=== PATIENT | female | born 1965 | race Caucasian/White ===

== ENCOUNTER 2017-02-13 10:22 | Inpatient (IN) | payer MEDICAID ==
[~2017-02-13 10:22] MED LIST: SCOPOLAMINE PATCH TOP ONE
[2017-02-13] MEDS ORDERED: ceFAZolin 2 GM/50 ML 50 ML IV ONE (10:26)
[2017-02-13] MEDS ORDERED: LACTATED RINGERS 1,000 ML IV ONE ×4 (10:30→19:14)
[2017-02-13] MEDS ORDERED: LIDOCAINE 1% 50 ML MDV ONE (11:06)
[2017-02-13] MEDS ORDERED: LIDOCAINE 1%-EPI 1:100000 20 ML MDV SUBQ ONE ×2 (14:11→19:14)
[2017-02-13] MEDS ORDERED: BUPIVACAINE 0.5% PF 30 ML VIAL SUBQ ONE ×2 (14:11→19:14)
[2017-02-13] MEDS ORDERED: METOCLOPRAMIDE 10 MG/2 ML VIAL IVP ONE (14:18)
[2017-02-13] MEDS ORDERED: GLYCOPYRROLATE 1 MG/5 ML VIAL IVP ONE (14:18)
[2017-02-13] MEDS ORDERED: MIDAZOLAM 2 MG/2 ML VIAL IVP ONE (14:18)
[2017-02-13] MEDS ORDERED: HYDROmorphone 1 MG/ML SYRINGE IVP ONE (14:18)
[2017-02-13] MEDS ORDERED: NEOSTIGMINE 1 MG/1 ML 10 ML MDV IVP ONE (14:18)
[2017-02-13] MEDS ORDERED: SUCCINYLCHOLINE 200 MG/10 ML VIAL IVP ONE (14:18)
[2017-02-13] MEDS ORDERED: KETOROLAC 30 MG/ML VIAL IVP ONE (14:18)
[2017-02-13] MEDS ORDERED: LIDOCAINE-MPF 2% 5 ML VIAL IM ONE (14:18)
[2017-02-13] MEDS ORDERED: DEXAMETHASONE 4 MG/ML VIAL IVP ONE (14:18)
[2017-02-13] MEDS ORDERED: PROPOFOL 200 MG/20 ML VIAL IVP ONE (14:18)
[2017-02-13] MEDS ORDERED: ACETAMINOPHEN 1,000 MG/100 ML VIAL IV ONE (14:18)
[2017-02-13] MEDS ORDERED: ONDANSETRON 4 MG/2 ML VIAL IVP ONE (14:18)
[2017-02-13] MEDS ORDERED: ROCURONIUM 50 MG/5 ML VIAL IVP ONE (14:18)
[2017-02-13] MEDS: HYDROmorphone 1 MG/ML SYRINGE ONE ×4 (19:10→19:38)
[2017-02-13] MEDS ORDERED: PROMETHAZINE 25 MG SUPP PR PRN (19:11)
[2017-02-13] MEDS ORDERED: PHENOL THROAT SPRAY 177 ML MM PRN (19:11)
[2017-02-13] MEDS ORDERED: PROCHLORPERAZINE 10 MG/2 ML VIAL IVP PRN (19:11)
[2017-02-13] MEDS ORDERED: ONDANSETRON 4 MG/2 ML VIAL IVP PRN (19:11)
[2017-02-13] MEDS ORDERED: HYDROmorphone 1 MG/ML SYRINGE IVP PRN (19:11)
[2017-02-13] MEDS ORDERED: ACETAMINOPHEN 1,000 MG/100 ML 100 ML IV PRN (19:11)
[2017-02-13] MEDS ORDERED: ACETAMINOPHEN 1,000 MG/100 ML 100 ML IV ONE (19:11)
[2017-02-13] MEDS: fentaNYL 100 MCG/2 ML VIAL ONE ×2 (19:52→20:19)
[2017-02-13] MEDS: HYDROmorphone PCA 10 MG IV PRN (20:27)
[2017-02-13] MEDS: D5NS W/20 MEQ KCL 1,000 ML IV SCH (20:49)
[2017-02-13] MEDS: SODIUM CHLORIDE FLUSH 0.9% 10 ML SYRINGE IVP SCH (21:48)
[2017-02-13] MEDS: diphenhydrAMINE INJ 50 MG/ML VIAL IVP PRN (22:16)
[2017-02-14] MEDS: PANTOPRAZOLE 40 MG VIAL IVP SCH (06:33)
[2017-02-14] MEDS: D5NS W/20 MEQ KCL 1,000 ML IV SCH ×2 (06:34→16:18)
[2017-02-14] MEDS: SODIUM CHLORIDE FLUSH 0.9% 10 ML SYRINGE IVP SCH ×3 (06:35→19:48)
[2017-02-14] MEDS: ENOXAPARIN 40 MG/0.4 ML SYRINGE SUBQ SCH (09:20)
[2017-02-14] MEDS: diphenhydrAMINE INJ 50 MG/ML VIAL IVP PRN ×2 (11:52→18:28)
[2017-02-14] MEDS: LORazepam 2 MG/ML SYRINGE IVP PRN ×2 (14:52→21:01)
[2017-02-14] MEDS ORDERED: BENZOCAINE/MENTHOL LOZENGE MM ONE (20:56)
[2017-02-15] MEDS: diphenhydrAMINE INJ 50 MG/ML VIAL IVP PRN ×3 (01:00→16:44)
[2017-02-15] MEDS: SODIUM CHLORIDE FLUSH 0.9% 10 ML SYRINGE IVP PRN ×2 (01:02→16:45)
[2017-02-15] MEDS: HYDROmorphone PCA 10 MG IV PRN (01:37)
[2017-02-15] MEDS: D5NS W/20 MEQ KCL 1,000 ML IV SCH (01:41)
[2017-02-15] MEDS: PANTOPRAZOLE 40 MG VIAL IVP SCH (06:47)
[2017-02-15] MEDS: SODIUM CHLORIDE FLUSH 0.9% 10 ML SYRINGE IVP SCH ×3 (06:47→16:45)
[2017-02-15] MEDS ORDERED: oxyCOD/ACETAMIN 5 MG/325 MG TABLET PO PRN (09:45)
[2017-02-15] MEDS: ENOXAPARIN 40 MG/0.4 ML SYRINGE SUBQ SCH (10:13)
[2017-02-15] MEDS: oxyCOD/ACETAMIN 5 MG/325 MG TABLET PO PRN ×3 (12:16→20:33)
[2017-02-15] MEDS: LORazepam 2 MG/ML SYRINGE IVP PRN (20:37)
[2017-02-16] MEDS: oxyCOD/ACETAMIN 5 MG/325 MG TABLET PO PRN ×2 (00:37→06:37)
[2017-02-16] MEDS: diphenhydrAMINE INJ 50 MG/ML VIAL IVP PRN (00:38)
[2017-02-16] MEDS: PANTOPRAZOLE 40 MG VIAL IVP SCH (06:38)
[2017-02-16] MEDS: SODIUM CHLORIDE FLUSH 0.9% 10 ML SYRINGE IVP SCH (09:19)
[2017-02-16] MEDS: ENOXAPARIN 40 MG/0.4 ML SYRINGE SUBQ SCH (09:20)
[2017-02-16] MEDS ORDERED: DIATR MEGLU/DIATRIZOATE SODIUM 120 ML BOTTLE PO ONE (09:33)
[2017-02-16] MEDS ORDERED: BARIUM SULFATE 176 GM BOTTLE PO ONE (09:33)
== END 2017-02-16 11:00 | disposition home or self-care (01) | DRG 328 ==
PROC: 0BQR4ZZ (ICD-10-PCS; principal; 2017-02-13 11:30)
PROC: 0DV44ZZ Restriction of Esophagogastric Junction, Percutaneous Endoscopic Approach (ICD-10-PCS; principal; 2017-02-13 11:30)
DX: K44.9 Diaphragmatic hernia without obstruction or gangrene (principal); K21.9 Gastro-esophageal reflux disease without esophagitis; Z87.891 Personal history of nicotine dependence

== ENCOUNTER 2017-02-23 18:48 | Outpatient (CLI) | payer MEDICAID ==
[2017-02-23] MEDS ORDERED: IOPAMIDOL-300 50 ML VIAL PO ONE (20:43)
[2017-02-23] MEDS ORDERED: IOPAMIDOL-300 100 ML VIAL IVP ONE (20:43)
== END 2017-02-23 18:49 | disposition home or self-care (01) ==
DX: R10.12 Left upper quadrant pain (principal)
CPT/HCPCS: 74177; 82565; Q9967

== ENCOUNTER 2017-06-26 11:42 | Outpatient (CLI) | payer MEDICAID ==
--- NOTE | 2017-06-26 15:40 | XRAY Report ---
TWO VIEW CHEST: 06/26/2017 CLINICAL INDICATION: Chest pain. COMPARISON: 09/22/2011. FINDINGS: Frontal and lateral views of the chest demonstrate a normal cardiac silhouette. The lungs are clear. No effusion or pneumothorax is present. IMPRESSION: NORMAL CHEST, UNCHANGED. JOB #: [id number] EXT JOB #:[id number]
== END 2017-06-26 11:43 | disposition home or self-care (01) ==
LOC: DI.N 11:42
PROVIDERS: ATTEND Physician Assistant
DX: J18.9 Pneumonia, unspecified organism (principal)
CPT/HCPCS: 71020

== ENCOUNTER → 2018-09-28 | Outpatient (CLI) | payer SELFPAY ==
[2018-09-28 19:27] LABS: BILIRUBIN,URINE NEGATIVE (NEGATIVE); GLUCOSE, URINE (UA) NEGATIVE (NEGATIVE); KETONES,URINE (UA) NEGATIVE (NEGATIVE); LEUKOCYTE ESTERASE, URINE LARGE (NEGATIVE); NITRITE,URINE NEGATIVE (NEGATIVE); OCCULT BLOOD,URINE LARGE (NEGATIVE); PROTEIN,URINE 30 mg/dL (NEGATIVE); UROBILINOGEN,URINE 0.2 (NORMAL) E.U./dL (NORMAL)
[2018-09-28 19:42] LABS: AMORPHOUS SEDIMENT,UR Rare /LPF; BACTERIA,URINE Many /HPF (None Seen); CLARITY,URINE CLOUDY (CLEAR); RBC,URINE TNTC /HPF (0-5); SQUAMOUS EPITHELIAL CELL,UR MANY Squamous (<= Few); WBC CLUMPS,URINE PRESENT
== END ==
LOC: LAB.R 16:35
PROVIDERS: ATTEND Physician Assistant Medical
DX: R10.30 Lower abdominal pain, unspecified (principal); R30.0 Dysuria
CPT/HCPCS: 81001; 87086

== ENCOUNTER 2020-02-24 08:00 | Outpatient (CLI) | payer SELFPAY ==
[2020-02-24 17:59] LABS: BILIRUBIN,URINE NEGATIVE (NEGATIVE); GLUCOSE, URINE (UA) NEGATIVE (NEGATIVE); KETONES,URINE (UA) NEGATIVE (NEGATIVE); LEUKOCYTE ESTERASE, URINE SMALL (NEGATIVE); NITRITE,URINE NEGATIVE (NEGATIVE); OCCULT BLOOD,URINE NEGATIVE (NEGATIVE); PH,URINE 6.5 PH (5.0-7.5); PROTEIN,URINE NEGATIVE (NEGATIVE); UROBILINOGEN,URINE 0.2 (NORMAL) E.U./dL (NORMAL)
[2020-02-24 18:15] LABS: CLARITY,URINE CLEAR (CLEAR)
[2020-02-24 18:16] LABS: BACTERIA,URINE None Seen /HPF (None Seen); EPITHELIAL CELLS,UR MOD Transitional /HPF (<= Few); RBC,URINE None Seen /HPF (0-5); SQUAMOUS EPITHELIAL CELL,UR FEW Squamous (<= Few)
== END 2020-02-24 23:59 | disposition home or self-care (01) ==
LOC: LAB.R 08:00
PROVIDERS: ATTEND Physician Assistant Medical
DX: R30.0 Dysuria (principal)
CPT/HCPCS: 81001; 87086

== ENCOUNTER 2021-07-26 08:00 | Outpatient (CLI) | payer SELFPAY | END 2021-07-26 23:59 | disposition home or self-care (01) | LOC: LAB.N 08:00 | PROVIDERS: ATTEND Physician Assistant Medical | DX: N30.00 Acute cystitis without hematuria (principal) | CPT/HCPCS: 87086; 87181 ==

== ENCOUNTER 2022-02-08 13:26 | Outpatient (CLI) | payer SELFPAY | END 2022-02-08 23:59 | disposition home or self-care (01) | LOC: LAB.N 13:26 | PROVIDERS: ATTEND Physician Assistant Medical | DX: R30.0 Dysuria (principal) | CPT/HCPCS: 87086 ==

== ENCOUNTER 2023-04-13 08:00 | Outpatient (CLI) | payer SELFPAY | END 2023-04-13 23:59 | disposition home or self-care (01) | LOC: LAB.N 08:00 | PROVIDERS: ATTEND Physician Assistant Medical | DX: N30.00 Acute cystitis without hematuria (principal) | CPT/HCPCS: 87086; 87181 ==